=== PATIENT | female | born 1985 | race Hispanic/Latino ===

== ENCOUNTER 2019-05-05 06:58 | Outpatient (CLI) | payer OTHER ==
--- NOTE | 2019-05-05 07:50 | ULT ---
ULTRASOUND ABDOMEN: HISTORY: Epigastric pain. FINDINGS: The liver, spleen, pancreas, gallbladder, kidneys, and visualized portions of the ureter and IVC appe ar normal. The common duct measures 4 mm in diameter. No free fluid is seen. IMPRESSION: Normal exam. POS: [facility]
== END 2019-05-05 06:59 | disposition home or self-care (01) ==
LOC: BICULT 06:58
PROVIDERS: ATTEND Family Medicine
DX: R10.13 Epigastric pain (principal)
CPT/HCPCS: 93975

== ENCOUNTER 2019-07-12 13:50 | Inpatient (IN) | payer OTHER ==
[2019-07-12] MEDS ORDERED: Sodium Chloride 0.9% 1,000 ML IV SCH (14:06)
[2019-07-12 14:38] LABS: #Eosinphils 0.1 thou/uL (0.0-0.7); #Lymphocytes 1.1 thou/uL (1.20-3.40); #Monocytes 0.6 thou/uL (0.11-0.59); #Neutrophils 4.6 thou/uL (1.40-6.50); %Basophils 0.3 % (0.0-1.0); %Eosinophils 1.3 % (0.0-10.0); %Lymphocytes 16.6 % (21.0-51.0); %Neutrophils 72.8 % (42.0-75.0); Hemoglobin 10.9 g/dL (12.0-16.0); Mean Corpuscular Hemoglobin 29.3 pg (27.0-31.0); Platelet Count 13 thou/uL (130-400); RBC Distribution Width 13.6 % (11.5-14.5); Red Blood Cell (RBC) Count 3.72 mill/uL (4.20-5.40); White Blood Cell (WBC) Count 6.4 thou/uL (4.8-10.8)
[2019-07-12 14:41] LABS: ALT (SGPT) Less than 7 U/L (8-55); AST (SGOT) 11 U/L (5-34); Albumin 3.2 g/dL (3.5-5.0); Alkaline Phosphatase 151 U/L (40-110); Anion Gap 11 mmol/L (10-20); BUN (Urea Nitrogen) 25 mg/dL (7.0-18.7); Bilirubin, Total 0.2 mg/dL (0.2-1.2); Calc. Creatinine Clearance 0 mL/min (70-130); Calcium 7.4 mg/dL (7.8-10.44); Carbon Dioxide 21 mmol/L (22-29); Chloride 100 mmol/L (98-107); Estimated GFR-MDRD 50; Globulin 2.4 g/dL (2.4-3.5); Glucose 64 mg/dL (70-105); Magnesium 1.9 mg/dL (1.6-2.6); Protein, Total 5.6 g/dL (6.0-8.3); Sodium 130 mmol/L (136-145)
[2019-07-12 14:47] LABS: Potassium 2.1 mmol/L (3.5-5.1)
[2019-07-12] MEDS ORDERED: Potassium Chloride 40 MEQ in Sodium Chloride 0.9% 250 ML 250 ML IVPB SCH (15:00)
[2019-07-12] MEDS ORDERED: Dexamethasone 40 MG in Sodium Chloride 0.9% 50 ML IVPB SCH (15:15)
[2019-07-12 15:43] LABS: BHCG - Serum Negative (NEGATIVE); Pregs Control Background? CLEAR/WHITE (CLR/WHITE); Pregs Control Bar Appear? YES (CONTROL BAR)
[2019-07-12 16:02] LABS: Thyroid Stimulating Hormone 0.9895 uIU/mL (0.35-4.94)
[2019-07-12] MEDS ORDERED: Ondansetron ODT 4 MG TAB PO PRN (19:03)
[2019-07-12] MEDS ORDERED: Acetaminophen 500 MG TAB PO PRN (19:03)
[2019-07-12] MEDS ORDERED: Ondansetron PF 4 MG/2 ML Vial IVP PRN (19:03)
[2019-07-12 19:48] LABS: Reticulocyte Count 1.1 % (0.5-1.5)
[2019-07-12 20:10] LABS: CRP (Inflammatory) 0.72 mg/dL (= or < 0.5); Iron 43 ug/dL (50-170); Magnesium 1.6 mg/dL (1.6-2.6)
[2019-07-12 20:14] LABS: Phosphorus 1.7 mg/dL (2.3-4.7)
[2019-07-12 20:35] LABS: Ferritin 110.7 ng/mL (10-291)
--- NOTE | 2019-07-12 21:43 | HP ---
PRIMARY CARE PROVIDER: Michael Templeton MD CHIEF COMPLAINT: Nausea, vomiting, lightheadedness, and low potassium. HISTORY OF PRESENT ILLNESS: This is a 34-year-old female, who presents to [facility] Emergency Department in transfer from Dr. Quesada's office after patient presented for evaluation of thrombocytopenia, which was noted on routine screening after a recent emergency room visit on 07/08/2019. The patient states she had bouts of protracted nausea and vomiting as well as abdominal discomfort with associated dizziness and poor oral intake, which began approximately 4 to 5 days prior to this evaluation. The patient states she has had intermittent nausea and abdominal discomfort over the last several weeks. The patient reports a weight loss of up to 7 pounds unintentionally. The patient denied any travel history, documented fever or prominent diarrhea. No family members with similar symptoms. The patient states she presented to the emergency room after the multiple bouts of nausea and vomiting and was treated supportively with IV fluids and potassium supplementation. The patient's platelet count was noted at 29 on 07/08/2019 with recommendations for outpatient followup with Hematology Service. The patient admits to longstanding history of hypokalemia, taking supplements over the last several years. The patient states she is typically not symptomatic from hypokalemia, but became concerned when nausea and vomiting would not subside. The patient admits to a recent change to her previous vegetarian diet to more meat based in the last several months. The patient admits to increased abdominal cramping as well as burning in her abdomen and was placed on omeprazole by her primary care provider. The patient denied any other exposure history, new medications other than the omeprazole, or recent vaccinations. In the emergency room, the patient underwent repeat lab evaluation due to the low potassium and confirmed at 2.1. The patient was also noted with a platelet count of 13,000. The patient was placed on IV fluids with potassium supplementation and given 40 mg of dexamethasone at the direction of Hematology. PAST MEDICAL HISTORY: 1. Chronic hypokalemia, unclear etiology. 2. Amenorrhea, times years. 3. Gastroesophageal reflux. PAST SURGICAL HISTORY: Reviewed and negative. CURRENT MEDICATIONS: 1. Potassium chloride 20 mEq p.o. daily up to t.i.d. 2. Omeprazole. ALLERGIES: NO KNOWN DRUG ALLERGIES. FAMILY HISTORY: Multiple family members with diabetes mellitus. Father with history of lymphoma. Mother with diabetes and hypertension. Sister after complications of myocardial infarction. SOCIAL HISTORY: and resides in the [place], [place] area. No tobacco, alcohol, or illicit drug use. Works for a local admissions rn office. Functional of all activities of daily living. Previous marathon runner. REVIEW OF SYSTEMS: CONSTITUTIONAL: Negative for weight loss or gain, ability to conduct usual activities. SKIN: Negative for rash, itching. EYES: Negative for double vision, pain. ENT/MOUTH: Negative for nose bleeding, neck stiffness, pain, tenderness. CARDIOVASCULAR: Negative for palpitations, dyspnea on exertion, orthopnea. RESPIRATORY: Negative for shortness of breath, wheezing, cough, hemoptysis, fever or night sweats. GASTROINTESTINAL: Negative for poor appetite, abdominal pain, heartburn, nausea, vomiting, constipation, or diarrhea. GENITOURINARY: Negative for urgency, frequency, dysuria, nocturia. MUSCULOSKELETAL: Negative for pain, swelling. NEUROLOGIC/PSYCHIATRIC: Negative for anxiety, depression. ALLERGY/IMMUNOLOGIC: Negative for skin rash, bleeding tendency. Otherwise negative except as stated per HPI. PHYSICAL EXAMINATION: VITAL SIGNS: On admission, blood pressure 90/51, pulse 78, respiratory rate 19, temperature 97.8 degrees Fahrenheit, O2 saturation 100% on room air. GENERAL APPEARANCE: This is a 34-year-old female, alert and oriented x3, pleasant, responsive, in no acute distress. HEENT: Pupils are equal, round, reactive to light and accommodation. Extraocular muscles are intact. No scleral icterus noted. Nares are patent. OP is clear. Teeth in good repair. NECK: Supple. No cervical adenopathy. No thyromegaly. No carotid bruits. No JVD appreciated. CHEST: Lungs are clear to auscultation bilaterally. CARDIOVASCULAR: S1, S2 without noted murmur, rub, or gallop. ABDOMEN: Flat, soft, nontender, and nondistended. No palpable mass. No rebound or guarding noted. EXTREMITIES: Warm and dry with fair turgor. No clubbing, cyanosis, or asymmetric edema appreciated. Pulses palpable distally. NEUROLOGIC: Cranial nerves 2 through 12 are grossly intact. No focal or lateralizing signs appreciated. SKIN: Shows multiple areas of bruising on the upper extremities. PERTINENT LABORATORY AND X-RAY FINDINGS: Sodium 130, potassium 2.1, chloride 100, CO2 of 21, BUN 25, creatinine 1.21, estimated GFR 50, glucose 64, calcium 7.4, magnesium 1.9, total bilirubin 0.2, AST 11, ALT of less than 7, alkaline phosphatase 151, albumin 3.2. TSH 0.99. Serum beta hCG negative. CBC showed a white blood cell count of 6.4, hemoglobin 11, hematocrit 32, platelet count 13,000 with normal differential. Abdominal ultrasound dated 05/05/2019, showed negative findings. EKG dated 07/12/2019 by my interpretation shows sinus mechanism without acute arrhythmia or dysrhythmia. ASSESSMENT AND PLAN: 1. Severe hypokalemia. The patient will be admitted to the telemetry unit. We will continue potassium chloride supplementation through IV fluids and monitor serial potassium levels. Suspect exacerbation of chronic hypokalemia with recent protracted nausea and vomiting. Check magnesium and phosphorus level in the a.m. 2. Acute kidney injury. Suspect secondary to poor oral intake and hypovolemia. We will continue IV fluids as outlined previously. Avoid nephrotoxic agents and limit contrast exposure. Repeat creatinine in the a.m. 3. Hyponatremia. Suspect secondary to decreased oral intake. We will continue normal saline infusion and monitor serial sodium values. 4. Thrombocytopenia. Appears acute/subacute when reviewing the electronic medical record starting in April of 2019. Exact etiology unclear. Questionable ITP versus consumptive process. Check ESR, CRP, SON. Consider anti-platelet antibody evaluation. Consult Hematology Service for any further recommendations. Avoid iatrogenic influence. 5. Nausea and vomiting, improved. We will continue antiemetics as needed. IV fluids as outlined previously. 6. Gastroesophageal reflux. Suspected given patient's presentation and history. Continue Pepcid 20 mg IV b.i.d. Check stool for guaiac. 7. Normocytic anemia. Check serum iron, ferritin, and reticulocyte count. Check B12 and folate level in the a.m. Repeat CBC in the a.m. 8. Prophylaxis. SCDs while in bed. Pepcid 20 mg IV b.i.d. 9. Code status is full. Surrogate medical decision maker is patient's spouse. Job ID: [id number]
[2019-07-13] MEDS: NS 0.9% w/ 40 MEQ KCL 1,000 ML IV SCH ×3 (00:52→14:50)
[2019-07-13] MEDS: Famotidine/PF 20 mg/2ml Vial SLOW IVP SCH ×2 (00:57→09:08)
[2019-07-13] MEDS ORDERED: Sodium Chloride 0.9% 250 ML IV SCH (01:00)
[2019-07-13 01:09] VITALS: BMI 16.6
[2019-07-13 05:10] LABS: ALT (SGPT) 8 U/L (8-55); AST (SGOT) 12 U/L (5-34); Albumin 2.9 g/dL (3.5-5.0); Alkaline Phosphatase 137 U/L (40-110); Anion Gap 10 mmol/L (10-20); BUN (Urea Nitrogen) 15 mg/dL (7.0-18.7); Bilirubin, Total 0.3 mg/dL (0.2-1.2); Calc. Creatinine Clearance 54 mL/min (70-130); Calcium 7.1 mg/dL (7.8-10.44); Carbon Dioxide 15 mmol/L (22-29); Chloride 109 mmol/L (98-107); Estimated GFR-MDRD 81; Globulin 2.4 g/dL (2.4-3.5); Glucose 119 mg/dL (70-105); Protein, Total 5.3 g/dL (6.0-8.3); Sodium 132 mmol/L (136-145)
[2019-07-13 05:17] LABS: Potassium 2.4 mmol/L (3.5-5.1)
[2019-07-13 05:25] LABS: Hemoglobin 10.9 g/dL (12.0-16.0); Mean Corpuscular HGB CONC 34.3 g/dL (32.0-36.0); Mean Corpuscular Volume 87.3 fL (78.0-98.0); Mean Platelet Volume 15.4 fL (7.4-10.4); Platelet Count 15 thou/uL (130-400); RBC Distribution Width 13.7 % (11.5-14.5); Red Blood Cell (RBC) Count 3.64 mill/uL (4.20-5.40); White Blood Cell (WBC) Count 4.7 thou/uL (4.8-10.8)
[2019-07-13 05:37] LABS: Band 12 % (5-11); Lymphocytes 12 % (21-51); MDiff Complete? YES; Myelocyte 2 % (0-0); Neutrophil 74 % (42-75); Platelet Morphology Comment Appears Decreased
[2019-07-13] MEDS ORDERED: Folic Acid 1 MG TAB PO SCH ×2 (09:00→09:15)
[2019-07-13] MEDS ORDERED: Cyanocobalamin 1000 MCG/ML VIAL IM SCH (09:00)
[2019-07-13] MEDS: Dexamethasone 4 MG TAB PO SCH (09:06)
[2019-07-13] MEDS ORDERED: Cyanocobalamin (Vitamin B-12) 1,000 MCG TAB PO SCH (09:15)
[2019-07-13] MEDS ORDERED: Ferrous Sulfate 325 MG TAB PO SCH (09:15)
[2019-07-13] MEDS ORDERED: K-Phos Neutral 250 MG TAB PO SCH (10:00)
--- NOTE | 2019-07-13 13:15 | PDOC.HOSPP ---
- Subjective Encounter Date: 07/13/19 Encounter Time: 13:05 Subjective: f/u for hypokalemia, thrombocytopenia on IVF's with KCL replacement. States feeling cramps and numbness. No N/V/D. No fever or chills. Received Dexamethasone 40mg for 2nd day due to thrombocytopenia. - Objective Vital Signs & Weight: Vital Signs (12 hours) Temp Pulse Resp BP Pulse Ox 07/13/19 12:00 98.5 F 79 16 92/53 L 100 07/13/19 07:54 98.2 F 57 L 16 100/56 L 100 07/13/19 04:16 97.4 F L 57 L 18 85/50 L 95 Weight Admit Weight 77 lb Weight 77 lb I&O: 07/12/19 07/13/19 07/14/19 06:59 06:59 06:59 Intake Total 992 Balance 992 Result Diagrams: 07/13/19 04:09 07/13/19 04:09 Additional Labs: Laboratory Tests 07/12/19 07/12/19 07/12/19 11:16 14:12 14:23 Plt Count 13 L* ESR Westergren Retic Count Sodium 132 L 130 L Potassium 2.0 L* 2.1 L* Phosphorus Magnesium Iron Ferritin C-Reactive Protein Vitamin B12 Folate TSH 3rd Generation Cortisol 07/12/19 07/12/19 07/12/19 15:12 19:37 19:37 Plt Count ESR Westergren Retic Count Sodium Potassium Phosphorus 1.7 L Magnesium 1.6 Iron 43 L Ferritin 110.70 C-Reactive Protein 0.72 H Vitamin B12 171 L Folate TSH 3rd Generation 0.9895 Cortisol 07/12/19 07/12/19 07/12/19 19:37 19:37 19:37 Plt Count ESR Westergren 3 Retic Count 1.1 Sodium Potassium Phosphorus Magnesium Iron Ferritin C-Reactive Protein Vitamin B12 Folate 6.10 L TSH 3rd Generation Cortisol 07/13/19 04:09 Plt Count ESR Westergren Retic Count Sodium Potassium Phosphorus Magnesium Iron Ferritin C-Reactive Protein Vitamin B12 Folate TSH 3rd Generation Cortisol 2.60 EKG Reviewed by me: Yes (Tele - SR) Hospitalist ROS - Medication Medications: Active Medications Generic Name Dose Route Start Last Admin Trade Name Freq PRN Reason Stop Dose Admin Dexamethasone 40 mg 07/13/19 08:00 07/13/19 09:06 Decadron PO 40 mg QAM-WM NORBERTO Administration Potassium Chloride/Sodium Chloride 1,000 mls @ 100 mls/hr 07/12/19 19:03 06:17 Ns 0.9% W/ 40 Meq Kcl IV Not Given .Q10H NORBERTO - Exam General Appearance: NAD, awake alert Eye: PERRL, anicteric sclera ENT: normocephalic atraumatic, no oropharyngeal lesions Neck: supple, symmetric, no JVD, no thyromegaly Heart: RRR, no murmur, no gallops, no rubs, normal peripheral pulses Respiratory: CTAB, no wheezes, no rales, no ronchi, normal chest expansion Gastrointestinal: soft, non-tender, non-distended, normal bowel sounds Extremities: no cyanosis, no clubbing, no edema Skin: normal turgor Neurological: cranial nerve grossly intact, no new deficit Musculoskeletal: normal tone, normal strength Psychiatric: normal affect, A&O x 3 Hosp A/P (1) Hypokalemia Code(s): E87.6 - HYPOKALEMIA Status: Acute Plan: Slow improvement with KCL replacement, continue po KCL, hold IVF's (2) CHRIS (acute kidney injury) Code(s): N17.9 - ACUTE KIDNEY FAILURE, UNSPECIFIED Status: Acute Plan: Improved, continue to encourage free-H2O intake (3) Hyponatremia Code(s): E87.1 - HYPO-OSMOLALITY AND HYPONATREMIA Status: Acute Plan: Persistent (4) Thrombocytopenia Code(s): D69.6 - THROMBOCYTOPENIA, UNSPECIFIED Status: Acute Plan: Suspected ITP on current Dexamethasone, serial platelet monitoring (5) Hypophosphatemia Code(s): E83.39 - OTHER DISORDERS OF PHOSPHORUS METABOLISM Status: Acute Plan: Kphos 500mg TID, serial monitoring (6) Folate deficiency Code(s): E53.8 - DEFICIENCY OF OTHER SPECIFIED B GROUP VITAMINS Status: Acute Plan: Start Folate 1mg daily (7) Iron deficiency Code(s): E61.1 - IRON DEFICIENCY Status: Acute Plan: FeSO4 325mg BID - Plan Continue KCL supplementation KPhos 500mg BID Folate 1mg daily FeSO4 325mg BID Continue Dexamethasone 40mg daily Saline lock IVF's AM lab: BMP, CBC, Mg++, PO3 Consult Nephrology
[2019-07-13] MEDS: K-Phos Neutral 250 MG TAB PO SCH ×2 (13:18→16:22)
--- NOTE | 2019-07-13 13:37 | CON ---
DATE OF CONSULTATION: REASON FOR CONSULTATION: Thrombocytopenia. HISTORY OF PRESENT ILLNESS: A 34-year-old female with past medical history of chronic hypokalemia of unknown cause, presenting to the hospital with potassium 2.0 and platelets of 13. The patient saw me in clinic yesterday after referral for thrombocytopenia as her platelets decreased from 292 last summer to 61 in April and 29 a few days ago and in clinic today was found to be 15. She has never had anemia, however, today her hemoglobin had dropped from 14 to 10. She also had CHRIS with creatinine 1.8, which had improved to 1.27 and is now normal at 0.80. I evaluated her for hemolysis and this has been ruled out as has hepatitis and HIV and likely her low platelets are secondary to ITP. I started her on dexamethasone 40 mg daily x4 days, and if she does not respond or her counts drop, then we will give her a dose of IVIG. She was found to have severely low folic acid and vitamin B12 and started replacement on this. Of note, she used to be a vegetarian and started eating meat recently and has been having trouble with nausea and vomiting. 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, and denies any smoking or alcohol. She has had no diarrhea and only has occasional blood in the stool from hemorrhoids. REVIEW OF SYSTEMS: Ten-point review of systems negative except as per HPI. PAST MEDICAL HISTORY: Chronic hypokalemia. PAST SURGICAL HISTORY: None. MEDICATIONS: Current medications reviewed. ALLERGIES: NO KNOWN DRUG ALLERGIES. FAMILY HISTORY: No anemia. SOCIAL HISTORY: No tobacco or alcohol. Previous runner. PHYSICAL EXAMINATION: VITAL SIGNS: Temperature 98.5, pulse 79, respirations 16, saturating 100% on room air, blood pressure 85 to 100 over 50 to 56. GENERAL APPEARANCE: The patient is sitting up in chair, in no acute distress. HEENT: Normocephalic and atraumatic. CARDIAC: S1 and S2. Regular rhythm and rate. RESPIRATIONS: Nonlabored. ABDOMEN: Soft, nondistended, and nontender. EXTREMITIES: No edema. LABORATORY DATA: White blood cells 4.7, hemoglobin 10.9, platelets 13 up to 15 today. Reticulocytes 1.1, ESR 3. Sodium 132, potassium 2.4 up from 2.0, chloride 109, carbon dioxide 15, BUN 15, creatinine 0.80, phosphorus 1.7, magnesium 1.6, iron 43, ferritin 110, bilirubin 0.3, LDH 133, albumin 2.9, vitamin B12 of 171, folate 6.10, cortisol 2.60. Hepatitis B, C, and HIV are nonreactive. ASSESSMENT AND PLAN: A 34-year-old female with thrombocytopenia, hypokalemia, hyponatremia, and anemia. The patient's anemia is explained by a low vitamin B12 and folic acid and recommend oral folate replacement and daily B12 injections x7 followed by once per month and eventually can convert over to oral supplementation. Her thrombocytopenia is likely secondary to ITP as she has no signs or symptoms of HUS or TTP and takes no medications that should be causing this. I have started her on dexamethasone 40 mg x4 days and will trend and if no improvement or worsens, we will give her a dose of IVIG. Recommend Nephrology consult to evaluate chronic hypokalemia and hyponatremia or Endocrine consult for potential adrenal insufficiency as her cortisol was only 2.6. We will continue to follow along. Job ID: [id number] [facility]
[2019-07-13 13:42] LABS: Potassium 2.7 mmol/L (3.5-5.1)
[2019-07-13] MEDS ORDERED: Potassium Chloride 20 MEQ TAB PO SCH (14:00)
[2019-07-13 15:10] LABS: Potassium, Urine 22.9 mmol/L
[2019-07-13 15:39] LABS: ANA Symphony (Qualitative) Negative (Negative); ANA Symphony (Quantitative) 0.3 Ratio (< 0.7 Negative); dsDNA IgG Antibody Less than 0.5 IU/mL (<10 Negative)
[2019-07-13] MEDS: Potassium Chloride 20 MEQ TAB PO SCH (16:23)
[2019-07-13] MEDS: Ferrous Sulfate 325 MG TAB PO SCH (16:23)
--- NOTE | 2019-07-13 20:47 | PDOC.EVN ---
Event Note - Event Note Event Note: Notified by RN, patient with diffuse tingling and hand stiffness. Has had calcium, potassium and phosphorus deficiencies. Corrected calcium today is 7.98. Will repeat labs to reassess and will include magnesium. Per Dr. Lopez, results to be communicated to nephrology for further management.
--- NOTE | 2019-07-13 21:08 | CON ---
DATE OF CONSULTATION: CONSULTING PHYSICIAN: Paramjit Hua MD REQUESTING PHYSICIAN: Dr. Reed. REASON FOR CONSULTATION: Chronic hypokalemia. IMPRESSION: 1. Chronic hypokalemia, currently exacerbated by nausea and vomiting with poor p.o. intake. The etiology of these chronic hypokalemia is unknown at this point. Potential etiologies include but not limited to the following. a. Renal tubular acidosis, especially in this patient with metabolic acidosis in the presence of possible alkalotic urine. b. Rare genetic disorders in this case bypass syndrome which is associated with hypercalciuria with hypocalcemia, especially in this patient with hypocalcemia. The only finding that contradicts this diagnosis is metabolic acidosis as this patient is trying to be alkalotic and with low blood pressure of which this patient does have. 2. Potential etiology includes self-induced continued vomiting with its attendance potassium loss in the urine due to metabolic alkalosis and delivery of high bicarbonate load to the distal collecting tubule. 3. Diet especially in this patient is on low-calorie diet. In this case, possibly protein with low-carbohydrate generating a lot of ketones, which this patient's urine did show trace ketone and this ketones in turn will induce potassium loss due to the negatively charged ion in the distal convoluted tubule. PLAN: Extensive workup to be initiated to identify the baseline chronic hypokalemia in this patient who has currently been exacerbated by poor p.o. intake and nausea and vomiting. These workup will include. 1. 24-hour urine collection for analysis of the amount of potassium loss in the urine as well as the degree of calcium loss or spot urine for protein and chloride to be checked to find out the degree of chloride excretion in this patient, which if this patient is having mainly started just nausea and vomiting, the chloride loss in the urine would be less. Degree of calcium loss will have to differentiate between bypass syndrome and Gitelman syndrome. 2. Continue with protein repletion in this patient. 3. If renal tubular acidosis eventually diagnosed, administration of sodium and potassium p.o. in this case sodium and potassium citrate will be initiated. 4. Further management will be dependent on the clinical course. The thrombocytopenia cannot be explained at this point. HISTORY OF PRESENT ILLNESS: History is that of 34-year-old female patient who does have history of chronic hypokalemia, on potassium supplementation, which etiology has not been diagnosed presented here as a transfer from Dr. Quesada's office with unexplained thrombocytopenia and severe hypokalemia. As a result of these electrolyte abnormality, decision has been taken to involve Renal in the management of this case. On close evaluation of this patient, the patient noted to have low blood pressure, low phosphorus level, and low calcium level. A constellation of these findings will necessitate extensive workup to evaluate the baseline electrolyte dysfunction in this patient. PAST MEDICAL HISTORY: Significant for chronic hypokalemia, recent diagnosis of unexplained thrombocytopenia, reflux disease. CURRENT MEDICATIONS: Include: 1. Potassium. 2. Omeprazole. ALLERGIES: NO KNOWN DRUG ALLERGIES. FAMILY HISTORY: Not significantly related to presenting illness. SOCIAL HISTORY: No tobacco. No illicit drug use. REVIEW OF SYSTEMS: As documented in the body of the history. All the other systems were reviewed and found not to be significantly related to presenting illness. PHYSICAL EXAMINATION: GENERAL: The patient was found not to be in any obvious distress, but somewhat lethargic looking with the following vital signs. VITAL SIGNS: Afebrile, temperature 97.6, pulse 59, respiratory rate of 16, O2 saturation of 96% with blood pressure of 87/52, 73/45. HEENT: Unremarkable. CARDIOVASCULAR SYSTEM: First and second heart sounds were heard. RESPIRATORY SYSTEM: Clear to auscultation. DIGESTIVE SYSTEM: Revealed a benign abdomen. Positive bowel sounds. EXTREMITIES: No peripheral edema. SKIN: No new gross rash. LYMPHATICS: No peripheral lymphadenopathy. SUMMARY: A 34-year-old female patient with unexplained electrolyte abnormalities, especially hypokalemia. Thank you for this consultation. We will follow with you. Job ID: [id number] MTDD
[2019-07-13 21:20] LABS: Anion Gap 14 mmol/L (10-20); BUN (Urea Nitrogen) 13 mg/dL (7.0-18.7); Calc. Creatinine Clearance 50 mL/min (70-130); Calcium 6.7 mg/dL (7.8-10.44); Carbon Dioxide 16 mmol/L (22-29); Chloride 106 mmol/L (98-107); Estimated GFR-MDRD 76; Glucose 121 mg/dL (70-105); Magnesium 1.4 mg/dL (1.6-2.6); Phosphorus 2.5 mg/dL (2.3-4.7); Potassium 3.1 mmol/L (3.5-5.1); Sodium 133 mmol/L (136-145)
[2019-07-13] MEDS: Calcium Carbonate 500 MG ChewTAB PO PRN (22:26)
[2019-07-13] MEDS: Simethicone Chewable 80 MG TAB PO PRN (22:26)
[2019-07-13] MEDS ORDERED: Calcium Gluconate 9.2 MEQ in Sodium Chloride 0.9% 100 ML IVPB SCH (22:30)
[2019-07-13] MEDS ORDERED: Magnesium 2 GM/50 ML 2 GM in Premix Bag 1 BAG IVPB SCH (22:30)
[2019-07-13] MEDS: D5 NS w/ 40 mEq KCl 1,000 ML IV SCH (23:25)
[2019-07-14 04:59] LABS: Band 11 % (5-11); Hemoglobin 9.5 g/dL (12.0-16.0); Lymphocytes 5 % (21-51); MDiff Complete? YES; Mean Corpuscular Hemoglobin 30.1 pg (27.0-31.0); Mean Corpuscular Volume 86.1 fL (78.0-98.0); Mean Platelet Volume 12.9 fL (7.4-10.4); Monocytes 1 % (0-10); Neutrophil 83 % (42-75); Platelet Count 33 thou/uL (130-400); Platelet Morphology Comment Appears Decreased; RBC Distribution Width 13.8 % (11.5-14.5); Red Blood Cell (RBC) Count 3.15 mill/uL (4.20-5.40); White Blood Cell (WBC) Count 10.6 thou/uL (4.8-10.8)
[2019-07-14 05:03] LABS: Albumin 2.7 g/dL (3.5-5.0); Anion Gap 9 mmol/L (10-20); BUN (Urea Nitrogen) 14 mg/dL (7.0-18.7); Calc. Creatinine Clearance 54 mL/min (70-130); Calcium 7.3 mg/dL (7.8-10.44); Carbon Dioxide 16 mmol/L (22-29); Chloride 110 mmol/L (98-107); Estimated GFR-MDRD 81; Glucose 120 mg/dL (70-105); Magnesium 2.1 mg/dL (1.6-2.6); Phosphorus 2.2 mg/dL (2.3-4.7); Sodium 132 mmol/L (136-145)
[2019-07-14 05:11] LABS: Potassium 2.6 mmol/L (3.5-5.1)
[2019-07-14] MEDS: Dexamethasone 4 MG TAB PO SCH (09:19)
[2019-07-14] MEDS: Potassium Chloride 20 MEQ TAB PO SCH ×2 (09:20→16:31)
[2019-07-14] MEDS: K-Phos Neutral 250 MG TAB PO SCH ×3 (09:20→16:30)
[2019-07-14] MEDS: Ferrous Sulfate 325 MG TAB PO SCH ×2 (09:20→16:30)
[2019-07-14] MEDS: Folic Acid 1 MG TAB PO SCH (09:21)
[2019-07-14] MEDS: Famotidine/PF 20 mg/2ml Vial SLOW IVP SCH (09:21)
[2019-07-14] MEDS: Cyanocobalamin (Vitamin B-12) 1,000 MCG TAB PO SCH (09:21)
[2019-07-14] MEDS: Calcium Carbonate 500 MG ChewTAB PO PRN ×2 (09:26→16:32)
[2019-07-14] MEDS ORDERED: Cyanocobalamin 1000 MCG/ML VIAL IM SCH (10:45)
--- NOTE | 2019-07-14 12:22 | PDOC.MOPN ---
Interval History: Pt feeling better today, energy improved. No bleeding. Plts 15 > 33. - Vital Signs Vital Signs: Vital Signs (12 hours) Temp Pulse Resp BP BP Pulse Ox 07/14/19 11:26 97.4 F L 71 22 H 86/50 L 100 07/14/19 07:51 97.6 F 65 16 89/54 L 95 07/14/19 04:00 97.7 F 71 16 84/50 L 99 Weight Admit Weight 77 lb Weight 77 lb - Physical Exam General: Alert, Oriented x3, Cooperative HEENT: EOMI Lungs: Normal air movement Cardiovascular: Regular rate Neurological: Cranial nerves 3-12 NL Psych/Mental Status: Mood NL - Labs Result Diagrams: 07/14/19 04:13 07/14/19 04:13 Lab results: Laboratory Results - last 24 hr 07/14/19 04:13: Sodium 132 L, Potassium 2.6 L*, Chloride 110 H, Carbon Dioxide 16 L, Anion Gap 9 L, BUN 14, Creatinine 0.80, Estimated GFR (MDRD) 81, BUN/ Creatinine Ratio 17.50, Glucose 120 H, Calcium 7.3 L, Phosphorus 2.2 L, Magnesium 2.1, Albumin 2.7 L 07/14/19 04:13: WBC 10.6, RBC 3.15 L, Hgb 9.5 L, Hct 27.1 L, MCV 86.1, MCH 30.1 , MCHC 35.0, RDW 13.8, Plt Count 33 L, MPV 12.9 H, Neutrophils % (Manual) 83 H, Band Neuts % (Manual) 11, Lymphocytes % (Manual) 5 L, Monocytes % (Manual) 1, Plt Morphology Comment Appears Decreased L 07/13/19 20:44: Sodium 133 L, Potassium 3.1 L, Chloride 106, Carbon Dioxide 16 L , Anion Gap 14, BUN 13, Creatinine 0.85, Estimated GFR (MDRD) 76, Glucose 121 H , Calcium 6.7 L, Phosphorus 2.5, Magnesium 1.4 L 07/13/19 14:30: U Random Total Protein 24 H, Urine Potassium 22.9 07/13/19 13:14: Potassium 2.7 L* 07/12/19 19:37: SON Screen Negative, SON Scrn Qualitative Negative, SON Scrn Quantitative 0.3, SON & Anti-RICHARD New Method NEW METHOD , Anti-ds DNA IgG Ab Less than 0.5, Anti-ds DNA Interp A/P - Problem (1) Acute ITP Current Visit: Yes Code(s): D69.3 - IMMUNE THROMBOCYTOPENIC PURPURA Status: Acute (2) B12 deficiency Current Visit: Yes Code(s): E53.8 - DEFICIENCY OF OTHER SPECIFIED B GROUP VITAMINS Status: Acute (3) Folate deficiency Current Visit: Yes Code(s): E53.8 - DEFICIENCY OF OTHER SPECIFIED B GROUP VITAMINS Status: Acute - Plan Plan: ITP: plts improved on Dex cont Dex 40 mg x 4 days total Anemai: 2/2 B12 and folate deficiency cont replacement Electrolyte disturbances f/u nephro recs for diagnosis, unknown at this time
[2019-07-14] MEDS: D5 NS w/ 40 mEq KCl 1,000 ML IV SCH (12:42)
--- NOTE | 2019-07-14 14:41 | PDOC.HOSPP ---
- Subjective Encounter Date: 07/14/19 Encounter Time: 14:00 Subjective: f/u for multiple electrolyte abnormalities, thrombocytopenia and dehydration. Feels ok overall, had cramping last pm. Eating better. - Objective Vital Signs & Weight: Vital Signs (12 hours) Temp Pulse Resp BP BP Pulse Ox 07/14/19 11:26 97.4 F L 71 22 H 86/50 L 100 07/14/19 07:51 97.6 F 65 16 89/54 L 95 07/14/19 04:00 97.7 F 71 16 84/50 L 99 Weight Admit Weight 77 lb Weight 77 lb I&O: 07/13/19 07/14/19 07/15/19 06:59 06:59 06:59 Intake Total 992 4542 Balance 992 4542 Result Diagrams: 07/14/19 04:13 07/14/19 04:13 Additional Labs: Laboratory Tests 07/12/19 07/12/19 07/12/19 11:16 14:12 14:23 Plt Count 13 L* ESR Westergren Retic Count Sodium 132 L 130 L Potassium 2.0 L* 2.1 L* Carbon Dioxide Calcium Phosphorus Magnesium Iron Ferritin C-Reactive Protein Albumin Vitamin B12 Folate TSH 3rd Generation Cortisol 07/12/19 07/12/19 07/12/19 15:12 19:37 19:37 Plt Count ESR Westergren Retic Count Sodium Potassium Carbon Dioxide Calcium Phosphorus 1.7 L Magnesium 1.6 Iron 43 L Ferritin 110.70 C-Reactive Protein 0.72 H Albumin Vitamin B12 171 L Folate TSH 3rd Generation 0.9895 Cortisol 07/12/19 07/12/19 07/12/19 19:37 19:37 19:37 Plt Count ESR Westergren 3 Retic Count 1.1 Sodium Potassium Carbon Dioxide Calcium Phosphorus Magnesium Iron Ferritin C-Reactive Protein Albumin Vitamin B12 Folate 6.10 L TSH 3rd Generation Cortisol 07/13/19 07/13/19 07/13/19 04:09 04:09 04:09 Plt Count 15 L* ESR Westergren Retic Count Sodium Potassium Carbon Dioxide 15 L Calcium 7.1 L Phosphorus Magnesium Iron Ferritin C-Reactive Protein Albumin Vitamin B12 Folate TSH 3rd Generation Cortisol 2.60 07/13/19 07/13/19 07/14/19 13:14 20:44 04:13 Plt Count ESR Westergren Retic Count Sodium 133 L Potassium 2.7 L* 3.1 L Carbon Dioxide 16 L Calcium 6.7 L Phosphorus 2.5 2.2 L Magnesium 1.4 L 2.1 Iron Ferritin C-Reactive Protein Albumin 2.7 L Vitamin B12 Folate TSH 3rd Generation Cortisol EKG Reviewed by me: Yes (Tele - SR) Hospitalist ROS - Medication Medications: Active Medications Generic Name Dose Route Start Last Admin Trade Name Freq PRN Reason Stop Dose Admin Calcium Carbonate 1,000 mg 07/12/19 19:03 07/14/19 09:26 Tums PO 1,000 mg Q4H PRN Administration Heartburn or Indigestion Cyanocobalamin 1,000 mcg 07/14/19 09:00 07/14/19 09:21 Vitamin B-12 PO 1,000 mcg DAILY NORBERTO Administration Dexamethasone 40 mg 07/13/19 08:00 07/14/19 09:19 Decadron PO 40 mg QAM-WM NORBERTO Administration Famotidine 20 mg 07/14/19 09:00 07/14/19 09:21 Pepcid SLOW IVP 20 mg DAILY NORBERTO Administration Ferrous Sulfate 325 mg 07/13/19 17:00 07/14/19 09:20 Feosol PO 325 mg BID-WM NORBERTO Administration Folic Acid 1 mg 07/14/19 09:00 07/14/19 09:21 Folvite PO 1 mg DAILY NORBERTO Administration Phosphorus 500 mg 07/13/19 12:00 07/14/19 12:05 Kphos Neutral PO 500 mg TID-WM NORBERTO Administration Potassium Chloride 40 meq 07/13/19 17:00 07/14/19 09:20 K-Dur PO 40 meq BID-WM NORBERTO Administration Simethicone 80 mg 07/13/19 21:38 07/13/19 22:26 Mylicon Chewable PO 80 mg PCHS PRN Administration Gas Pain - Exam General Appearance: NAD, awake alert General - other findings: smiling, alert Eye: PERRL, anicteric sclera ENT: normocephalic atraumatic, no oropharyngeal lesions Neck: supple, symmetric, no JVD, no thyromegaly Heart: RRR, no murmur, no gallops, no rubs, normal peripheral pulses Heart - other findings: S1, S2 Respiratory: CTAB, no wheezes, no rales, no ronchi, normal chest expansion, no tachypnea Gastrointestinal: soft, non-tender, non-distended, normal bowel sounds, no palpable masses Extremities: no cyanosis Extremities - other findings: mild edema of ankles Skin: normal turgor Skin - other findings: multiple bruises on forearms Neurological: cranial nerve grossly intact, no new deficit Musculoskeletal: normal tone, normal strength Psychiatric: normal affect, A&O x 3 Hosp A/P (1) Hypokalemia Code(s): E87.6 - HYPOKALEMIA Status: Acute Plan: Slow improvement with KCL replacement, ? K+ wasting syndrome, serial K+ monitoring (2) CHRIS (acute kidney injury) Code(s): N17.9 - ACUTE KIDNEY FAILURE, UNSPECIFIED Status: Acute Plan: Improved, avoid nephrotoxic meds and limit contrast, 24h urine pending (3) Hyponatremia Code(s): E87.1 - HYPO-OSMOLALITY AND HYPONATREMIA Status: Acute Plan: Likely due to decreased po intake and nutritional status, serial monitoring (4) Thrombocytopenia Code(s): D69.6 - THROMBOCYTOPENIA, UNSPECIFIED Status: Acute Plan: Improved, continue Dexamethasone 40mg daily, serial platelet monitoring (5) Hypophosphatemia Code(s): E83.39 - OTHER DISORDERS OF PHOSPHORUS METABOLISM Status: Acute Plan: Slow improvement, continue KPhos (6) Folate deficiency Code(s): E53.8 - DEFICIENCY OF OTHER SPECIFIED B GROUP VITAMINS Status: Acute Plan: Continue Folate replacement (7) Iron deficiency Code(s): E61.1 - IRON DEFICIENCY Status: Acute Plan: Continue FeSO4 replacement - Plan plan discussed w/ family, out of bed/ambulate Continue KCL supplementation KPhos 500mg BID Folate 1mg daily FeSO4 325mg BID Continue Dexamethasone 40mg daily Saline lock IVF's Check Vit D level, PTH AM lab: BMP, CBC, Mg++, PO3 Nephrology/Hematology consults appreciated
[2019-07-14 15:24] LABS: Urine Total Volume 2275 mL (600-1600)
[2019-07-14 15:49] LABS: Potassium, Urine 21.9 mmol/L
[2019-07-14 15:55] LABS: Protein, Urine Less than 10 mg/dL (1-14)
[2019-07-14 16:49] LABS: Bilirubin Negative (Negative); Blood, Urine Negative (Negative); Clarity Clear (Clear); Glucose, Urine (Dipstick) Normal (Negative); Leukocyte Negative Leu/uL (Negative); Nitrite Negative (Negative); Protein, Urine (Dipstick) Negative (Neg-Trace); Urobilinogen Normal mg/dL (Less than 2)
[2019-07-15] MEDS: Calcium Carbonate 500 MG ChewTAB PO PRN ×4 (00:29→16:49)
[2019-07-15 05:02] LABS: Albumin 2.8 g/dL (3.5-5.0); Anion Gap 10 mmol/L (10-20); BUN (Urea Nitrogen) 17 mg/dL (7.0-18.7); BUN/Creatinine Ratio 21.79; Calc. Creatinine Clearance 55 mL/min (70-130); Calcium 6.7 mg/dL (7.8-10.44); Carbon Dioxide 19 mmol/L (22-29); Chloride 107 mmol/L (98-107); Estimated GFR-MDRD 84; Glucose 120 mg/dL (70-105); Magnesium 1.5 mg/dL (1.6-2.6); Sodium 133 mmol/L (136-145)
[2019-07-15 05:05] LABS: Phosphorus 1.8 mg/dL (2.3-4.7)
[2019-07-15 05:09] LABS: Phosphorus 1.8 mg/dL (2.3-4.7); Potassium 2.8 mmol/L (3.5-5.1)
[2019-07-15 05:11] LABS: Hemoglobin 9.3 g/dL (12.0-16.0); Mean Corpuscular HGB CONC 34.6 g/dL (32.0-36.0); Mean Corpuscular Hemoglobin 30.2 pg (27.0-31.0); Mean Corpuscular Volume 87.3 fL (78.0-98.0); Mean Platelet Volume 10.8 fL (7.4-10.4); Platelet Count 63 thou/uL (130-400); RBC Distribution Width 13.9 % (11.5-14.5); Red Blood Cell (RBC) Count 3.07 mill/uL (4.20-5.40); White Blood Cell (WBC) Count 8.7 thou/uL (4.8-10.8)
[2019-07-15 05:30] LABS: Band 3 % (5-11); Lymphocytes 6 % (21-51); MDiff Complete? YES; Metamyelocyte 1 % (0-0); Monocytes 1 % (0-10); Neutrophil 89 % (42-75); Platelet Morphology Comment Appears Decreased; RBC Morphology Normal
[2019-07-15] MEDS ORDERED: Potassium Phosphate 15 MMOL in Sodium Chloride 0.9% 250 ML 250 ML IVPB SCH (06:45)
[2019-07-15] MEDS: K-Phos Neutral 250 MG TAB PO SCH ×3 (08:44→16:41)
[2019-07-15] MEDS: Cyanocobalamin (Vitamin B-12) 1,000 MCG TAB PO SCH (08:44)
[2019-07-15] MEDS: Famotidine/PF 20 mg/2ml Vial SLOW IVP SCH (08:44)
[2019-07-15] MEDS: Dexamethasone 4 MG TAB PO SCH (08:45)
[2019-07-15] MEDS: Folic Acid 1 MG TAB PO SCH (08:45)
[2019-07-15] MEDS: Ferrous Sulfate 325 MG TAB PO SCH ×2 (08:46→16:41)
[2019-07-15] MEDS: Potassium Bicarbonate/Cit Ac 25 MEQ TAB PO SCH ×2 (10:13→16:41)
[2019-07-15] MEDS: Simethicone Chewable 80 MG TAB PO PRN (12:37)
[2019-07-15 13:28] LABS: ALT (SGPT) 19 U/L (8-55); AST (SGOT) 19 U/L (5-34); Albumin 3.1 g/dL (3.5-5.0); Alkaline Phosphatase 114 U/L (40-110); Anion Gap 13 mmol/L (10-20); BUN (Urea Nitrogen) 16 mg/dL (7.0-18.7); BUN/Creatinine Ratio 21.92; Bilirubin, Total Less than 0.2 mg/dL (0.2-1.2); Calc. Creatinine Clearance 59 mL/min (70-130); Calcium 6.5 mg/dL (7.8-10.44); Carbon Dioxide 19 mmol/L (22-29); Chloride 106 mmol/L (98-107); Estimated GFR-MDRD 90; Globulin 2.1 g/dL (2.4-3.5); Glucose 99 mg/dL (70-105); Potassium 3.3 mmol/L (3.5-5.1); Protein, Total 5.2 g/dL (6.0-8.3); Sodium 135 mmol/L (136-145)
--- NOTE | 2019-07-15 13:34 | PDOC.HOSPP ---
- Subjective Encounter Date: 07/15/19 Encounter Time: 09:45 Subjective: wants to go home, K and Phos being replaced. cramps - Objective Vital Signs & Weight: Vital Signs (12 hours) Temp Pulse Resp BP Pulse Ox 07/15/19 12:28 98.2 F 71 23 H 100/49 L 100 07/15/19 08:36 97.5 F L 83 21 H 86/54 L 100 07/15/19 04:00 98.7 F 63 15 85/49 L 94 L Weight Admit Weight 77 lb Weight 77 lb I&O: 07/14/19 07/15/19 07/16/19 06:59 06:59 06:59 Intake Total 4542 2260 Balance 4542 2260 Result Diagrams: 07/15/19 04:29 07/15/19 12:53 Hospitalist ROS - Medication Medications: Active Medications Generic Name Dose Route Start Last Admin Trade Name Freq PRN Reason Stop Dose Admin Calcium Carbonate 1,000 mg 07/12/19 19:03 07/15/19 10:39 Tums PO 1,000 mg Q4H PRN Administration Heartburn or Indigestion Cyanocobalamin 1,000 mcg 07/14/19 09:00 07/15/19 08:44 Vitamin B-12 PO 1,000 mcg DAILY NORBERTO Administration Dexamethasone 40 mg 07/13/19 08:00 07/15/19 08:45 Decadron PO 40 mg QAM-WM NORBERTO Administration Famotidine 20 mg 07/14/19 09:00 07/15/19 08:44 Pepcid SLOW IVP 20 mg DAILY NORBERTO Administration Ferrous Sulfate 325 mg 07/13/19 17:00 07/15/19 08:46 Feosol PO 325 mg BID-WM NORBERTO Administration Folic Acid 1 mg 07/14/19 09:00 07/15/19 08:45 Folvite PO 1 mg DAILY NORBERTO Administration Phosphorus 500 mg 07/13/19 12:00 07/15/19 12:26 Kphos Neutral PO 500 mg TID-WM NORBERTO Administration Potassium Bicarbonate/Citric Acid 25 meq 07/15/19 08:00 07/15/19 10:13 K-Vescent PO 25 meq BID-WM NORBERTO Administration Simethicone 80 mg 07/13/19 21:38 07/15/19 12:37 Mylicon Chewable PO 80 mg PCHS PRN Administration Gas Pain - Exam General Appearance: NAD, awake alert Eye: PERRL, anicteric sclera ENT: normocephalic atraumatic Neck: supple, no thyromegaly Heart: RRR Respiratory: CTAB Gastrointestinal: normal bowel sounds Extremities: no cyanosis Hosp A/P - Plan ITP Hypokalemia Hypophosphatemia --lytes being replaceed --renal and haem on board pt wants to leave child at home as soon as lytes normalized, plan for dc, which is not today.
[2019-07-15 13:39] LABS: Phosphorus 1.5 mg/dL (2.3-4.7)
[2019-07-15] MEDS ORDERED: Potassium Chloride 20 MEQ TAB PO SCH (14:15)
[2019-07-15] MEDS ORDERED: Calcium Gluconate 9.2 MEQ in Sodium Chloride 0.9% 100 ML IVPB SCH (14:30)
[2019-07-15] MEDS ORDERED: Methocarbamol 500 MG TAB PO PRN (14:47)
--- NOTE | 2019-07-15 15:10 | PDOC.MOPN ---
Interval History: Platelets improved to 63. Pt c/o severe muscle cramps from low electrolytes causing 10/10 pain, screaming in agony. - Vital Signs Vital Signs: Vital Signs (12 hours) Temp Pulse Resp BP Pulse Ox 07/15/19 12:28 98.2 F 71 23 H 100/49 L 100 07/15/19 08:36 97.5 F L 83 21 H 86/54 L 100 07/15/19 04:00 98.7 F 63 15 85/49 L 94 L Weight Admit Weight 77 lb Weight 77 lb - Physical Exam General: Alert, Oriented x3, Severe distress Lungs: Normal air movement Cardiovascular: Regular rate Abdomen: Soft Skin: No significant lesion (mild bruising) - Labs Result Diagrams: 07/15/19 04:29 07/15/19 12:53 Lab results: Laboratory Results - last 24 hr 07/15/19 12:53: Sodium 135 L, Potassium 3.3 L, Chloride 106, Carbon Dioxide 19 L , Anion Gap 13, BUN 16, Creatinine 0.73, Estimated GFR (MDRD) 90, BUN/ Creatinine Ratio 21.92, Glucose 99, Calcium 6.5 L, Phosphorus 1.5 L, Total Bilirubin Less than 0.2 L, AST 19, ALT 19, Alkaline Phosphatase 114 H, Serum Total Protein 5.2 L, Albumin 3.1 L, Globulin 2.1 L, Albumin/Globulin Ratio 1.5 07/15/19 04:29: WBC 8.7, RBC 3.07 L, Hgb 9.3 L, Hct 26.8 L, MCV 87.3, MCH 30.2, MCHC 34.6, RDW 13.9, Plt Count 63 L, MPV 10.8 H, Neutrophils % (Manual) 89 H, Band Neuts % (Manual) 3 L, Lymphocytes % (Manual) 6 L, Monocytes % (Manual) 1, Metamyelocytes % (Man) 1 H, Plt Morphology Comment Appears Decreased L, RBC Morph Comment Normal 07/15/19 04:29: Phosphorus 1.8 L 07/15/19 04:29: Sodium 133 L, Potassium 2.8 L*, Chloride 107, Carbon Dioxide 19 L, Anion Gap 10, BUN 17, Creatinine 0.78, Estimated GFR (MDRD) 84, BUN/ Creatinine Ratio 21.79, Glucose 120 H, Calcium 6.7 L, Phosphorus 1.8 L, Magnesium 1.5 L, Albumin 2.8 L 07/14/19 : Urine Color Colorless, Urine Clarity Clear, Urine pH 6.5, Ur Specific Ovid 1.008, Urine Protein Negative, Urine Glucose (UA) Normal, Urine Ketones Negative, Urine Blood Negative, Urine Nitrite Negative, Urine Bilirubin Negative, Urine Urobilinogen Normal, Ur Leukocyte Esterase Negative 07/14/19 16:29: Urine Creatinine Less than 20.00 L 07/14/19 14:42: PTH Intact 311.8 H 07/13/19 14:30: Urine Protein Less than 10, Ur Collection Duration 24, Urine Total Volume 2275 H, U Tot Protein 24h, Calc TNP 07/13/19 14:30: Ur Collection Duration 24, Urine Total Volume 2275 H, Urine Potassium 21.9, Ur Potassium 24 Hour 50 07/13/19 14:30: Ur Collection Duration 24, Urine Total Volume 2275 H, Ur Calcium 24 Hr 93 L A/P - Problem (1) Acute ITP Current Visit: Yes Code(s): D69.3 - IMMUNE THROMBOCYTOPENIC PURPURA Status: Acute (2) B12 deficiency Current Visit: Yes Code(s): E53.8 - DEFICIENCY OF OTHER SPECIFIED B GROUP VITAMINS Status: Acute (3) Folate deficiency Current Visit: Yes Code(s): E53.8 - DEFICIENCY OF OTHER SPECIFIED B GROUP VITAMINS Status: Acute - Plan Plan: Complete 4 days of Dexamethasone, platelets improved to 63, continue to monitor cont B12 and folic acid replacement cont IV electrolyte replacement and w/u as per nephro, receiving IV calcium and potassium now for severe cramps DC home once electrolytes safely stable f/u with me in clinic after discharge for ongoing care for ITP
[2019-07-15] MEDS: Dronabinol 2.5 MG CAP PO SCH (16:42)
[2019-07-15] MEDS ORDERED: Calcium Carbonate + Vit D 1 TAB PO SCH ×2 (17:00→21:41)
[2019-07-15] MEDS ORDERED: Ergocalciferol 1.25 MG(50,000 UNITS) CAP PO SCH (17:00)
[2019-07-15 17:04] LABS: Albumin 3.2 g/dL (3.5-5.0); Anion Gap 15 mmol/L (10-20); BUN (Urea Nitrogen) 15 mg/dL (7.0-18.7); BUN/Creatinine Ratio 19.23; Calc. Creatinine Clearance 55 mL/min (70-130); Calcium 7.2 mg/dL (7.8-10.44); Carbon Dioxide 16 mmol/L (22-29); Chloride 106 mmol/L (98-107); Estimated GFR-MDRD 84; Glucose 167 mg/dL (70-105); Sodium 134 mmol/L (136-145)
[2019-07-15 17:11] LABS: Phosphorus 1.6 mg/dL (2.3-4.7); Potassium 2.8 mmol/L (3.5-5.1)
[2019-07-15] MEDS ORDERED: Calcium Gluconate 4.6 MEQ in Sodium Chloride 0.9% 100 ML IVPB SCH (18:00)
--- NOTE | 2019-07-15 18:27 | PRG ---
DATE OF SERVICE: 07/15/2019 SUBJECTIVE: The patient is seen and examined, noted with clenched fist which she claimed had to do with hypocalcemia, it is somewhat unusual. Noted with the following vital signs. OBJECTIVE: VITAL SIGNS: Afebrile, temperature 98.2, pulse 71, respiratory rate of 23, O2 saturation 100% with blood pressure 100/49. HEENT: Unremarkable. CARDIOVASCULAR: First and second heart sounds were heard. RESPIRATORY: Clear to auscultation. DIGESTIVE: Benign abdomen. EXTREMITIES: No peripheral edema. SKIN: No new gross rash. LYMPHATICS: No peripheral lymphadenopathy. LABORATORY INVESTIGATION: Earlier today showed a potassium of 2.8, it has been now at 3.3; calcium of 6.7; and phosphorus of 1.5. intact PTH of 311. IMPRESSION: 1. Severe electrolyte abnormalities mainly compounded by poor nutritional intake. 2. Possible renal tubular acidosis, given the high pH in this patient in the face of metabolic acidosis and hypokalemia. This is probably the baseline condition of this patient, but it has now been exacerbated by poor nutritional intake. PLAN: 1. The patient to be placed on appetite stimulant today. 2. While waiting for vitamin D level, I will start this patient on 50,000 units of vitamin D with calcium supplementation. 3. The patient counseled on the need to step up on her diet, which is likely exacerbating all her baseline clinical condition. 4. From now onwards, the patient to be on potassium citrate as this will address the metabolic acidosis and hypokalemia. 5. Further management will be dependent on the clinical course. Job ID: [id number] [email or web address]
[2019-07-16 05:10] LABS: Anion Gap 10 mmol/L (10-20); BUN (Urea Nitrogen) 16 mg/dL (7.0-18.7); BUN/Creatinine Ratio 22.54; Calc. Creatinine Clearance 60 mL/min (70-130); Carbon Dioxide 22 mmol/L (22-29); Chloride 108 mmol/L (98-107); Estimated GFR-MDRD Greater than 90; Glucose 97 mg/dL (70-105); Magnesium 1.6 mg/dL (1.6-2.6); Potassium 3.2 mmol/L (3.5-5.1); Sodium 137 mmol/L (136-145)
[2019-07-16] MEDS: Dexamethasone 4 MG TAB PO SCH (08:39)
[2019-07-16] MEDS: K-Phos Neutral 250 MG TAB PO SCH ×3 (08:40→16:10)
[2019-07-16] MEDS: Potassium Bicarbonate/Cit Ac 25 MEQ TAB PO SCH ×2 (08:40→16:10)
[2019-07-16] MEDS: Ferrous Sulfate 325 MG TAB PO SCH ×2 (08:40→16:10)
[2019-07-16] MEDS: Folic Acid 1 MG TAB PO SCH (08:41)
[2019-07-16] MEDS: Cyanocobalamin (Vitamin B-12) 1,000 MCG TAB PO SCH (08:41)
[2019-07-16] MEDS: Famotidine/PF 20 mg/2ml Vial SLOW IVP SCH (08:41)
[2019-07-16] MEDS: Calcium Carbonate 500 MG ChewTAB PO PRN ×2 (08:46→16:09)
[2019-07-16] MEDS: Dronabinol 2.5 MG CAP PO SCH ×2 (09:18→16:21)
[2019-07-16] MEDS ORDERED: Calcium Gluconate 4.6 MEQ in Sodium Chloride 0.9% 100 ML IVPB SCH (12:45)
[2019-07-16 15:55] VITALS: BP 106/55; TEMP 98.3
[2019-07-16] MEDS ORDERED: Calcium Carbonate + Vit D 1 TAB PO SCH (17:00)
[2019-07-16] MEDS ORDERED: Famotidine/PF 20 mg/2ml Vial SLOW IVP SCH (21:00)
--- NOTE | 2019-07-17 08:31 | PRG ---
DATE OF SERVICE: 07/14/2019 SUBJECTIVE: The patient was seen and examined, very eager to go home. Noted with the following vital signs. OBJECTIVE: VITAL SIGNS: Afebrile, temperature 97.8, pulse 61, respiratory rate of 16, and O2 saturation 100% with a blood pressure 84/50. HEENT: Unremarkable. CARDIOVASCULAR SYSTEM: First and second heart sounds were heard. RESPIRATORY SYSTEM: Clear to auscultation. DIGESTIVE SYSTEM: Revealed a benign abdomen. Positive bowel sounds. EXTREMITIES: No peripheral edema. SKIN: No new gross rash. LYMPHATICS: No peripheral lymphadenopathy. LABORATORY INVESTIGATION: Showed a 24-hour urine which has loss of about 93 and urine potassium of 16, and urine pH of 6.5. Chemistry showed calcium of 7.3, increased from 6.7 yesterday. Surprisingly, PTH was greater than 11.8. Potassium 2.6, sodium of 132, bicarb was 16, creatinine 0.8. CBC showed a hemoglobin of 9.5, platelets increased to 33. IMPRESSION: 1. Severe hypokalemia, query cause. 2. Hypocalcemia with low albumin. 3. Metabolic acidosis. 4. Hyperparathyroidism, possibly primary hyperparathyroidism, query cause. PLAN: 1. . 2. Given the fact that this patient has metabolic acidosis based on the urine pH of 6.5, this raises the high possibility that this patient has renal tubular acidosis, possibly type 2 tubular acidosis. However, the electrolyte derangement has been exacerbated by possibly poor diet. 3. Cannot completely rule out neoplastic but we will wait for the results of the vitamin D level. 4. We will wait for the results of the vitamin D to further evaluate the hypocalcemia in this patient. Continue to replete the potassium and continue to replete the calcium. If the final diagnosis becomes renal tubular acidosis, we will likely place this patient on potassium citrate. 5. Further management will be dependent on the clinical course. Job ID: [id number]
--- NOTE | 2019-07-17 14:01 | DIS ---
DATE OF ADMISSION: 07/12/2019 DATE OF DISCHARGE: 07/16/2019 DISCHARGE DIAGNOSES: 1. Idiopathic thrombocytopenic purpura. 2. Hypokalemia. 3. Hypophosphatemia. 4. Electrolyte abnormality due to poor nutritional intake. 5. Renal tubular acidosis. 6. Metabolic acidosis with hypokalemia and possibly baseline with underlying etiology of poor nutritional intake. Vitamin D deficiency. 7. Acute idiopathic thrombocytopenic purpura. 8. B12 deficiency. 9. Folate deficiency. DISCHARGE MEDICATIONS: 1. Caltrate two tablets twice a day. 2. Vitamin D2 of 50,000 units once a week. 3. Robaxin 750 mg three times a day p.r.n. for only five days. 4. Potassium citrate 50 mEq twice a day. 5. She will resume the home regimen of omeprazole daily as well as ferrous sulfate 325 mg twice a day. 6. Marinol 2.5 mg twice a day. HOSPITAL COURSE: This is a 34-year-old female admitted with nausea, vomiting, lightheadedness, as well as low potassium level. Both Renal as well as Hematology followed with us. She had acute kidney injury due to dehydration as well as hyponatremia. This has been corrected over time. Her kidney injury improved. She had a low calcium with level of 6.7, improved to 7.0 with albumin level of 3.0. She will be on calcium supplement. She presented with a potassium level of 2.8 and after aggressive supplementation, it improved only up to 3.2, and she is on a daily potassium supplement as well. Her PTH was high at 311.8. She also had magnesium low and on the day of discharge, it was 1.6. Phosphorus was improved. After renal clearance, the patient is discharged today. Her TSH is 0.9895. The patient needs close followup with the Renal Clinic to continue monitoring her electrolyte abnormalities. The patient is encouraged to have adequate nutrition. Regarding her idiopathic thrombocytopenic purpura, she improved with dexamethasone. It was done for four days. She will be following with Dr. Bright Quesada in the very near future. She is hemodynamically stable. Her electrolytes are close to the lower normal range. She is given prescriptions for supplements by renal doctor as well as by me. Also, given a work excuse script. With these above management, she is stable to be discharged home. DISCHARGE INSTRUCTIONS: 1. Activity as tolerated. Please follow through with regular diet adequately. 2. Follow up with Dr. Yusuf, convertible sofa bedspring tester in one week time for lab workup as well as medication adjustment. Follow up with stamping die maker, Dr. Bright Quesada within two weeks. 3. Please adhere to your medications provided. Discharge time took over 30 minutes. Job ID: [id number] MTDD
--- NOTE | 2019-07-18 00:28 | PQF ---
[employer] Social Staff Worker [employer] Reports Winform Viewer TEODORO VEE MARGY KEARNS [id number] CLINICAL DOCUMENTATION CLARIFICATION FORM: POST DISCHARGE Addendum to original discharge summary date: ____ Late entry note date: __ Date: 07/18/19 ATTN: Margy Kearns Please exercise your independent, professional judgment in responding to the clarification form. Clinical indicators are provided on the bottom of this form for your review Can you please further clarify the diagnosis of the patient based on the clinical indicators below? Please check appropriate box(s): [ x ] Protein Calorie Malnutrition: [ ] Mild [ x] Moderate [ ] Severe [ ] Other Malnutrition (please specify) __ [ ] Underweight without malnutrition [ ] Cachexia [ ] Other diagnosis [ ] Unable to determine In addition, please specify: Present on Admission (POA): [x ] Yes [ ] No [ ] Unable to determine CLINICAL INDICATORS - SIGNS / SYMPTOMS / LABS BMI 19.1 Nutritional assessment-severe malnutrition in the context of acute illness Nutritional assessment- patient report of limited PO intake likely meeting <25 % of estimated needs for >7 days Nutritional assessment- 9.4% weight loss in the last 3 months H and P pg.1- Nausea vomiting, lightheadedness and low potassium DS pg.1- electrolyte abnormality due to poor nutritional intake RISK FACTORS Severe hypokalemia- H and P pg.3 CHRIS- H and P pg.3 Idiopathic thrombocytopenic purpura Vitamin D deficiency- DS pg.1 Dehydration- DS pg.1 TREATMENT: Dietary consult-Nutritional assessment 07/13 Oncology Consult- Dr. Quesada I and O monitoring Calcium Gluconate 4.6 meq IV MAR Caltrate 600ng PO- MAR Vitamin b 12 100mcg po- MAR Ferrous sulfate 325mg PO- MAR Folic acid PO- MAR Moderate Malnutrition (in acute illness) Energy Intake: <75% of estimated energy requirement for > 7 days Weight Loss: 1-2%/1 week; 5%/ 1 month; 7.5%/3 months Other: mild body fat loss; mild muscle mass loss; mild fluid accumulation; Severe Malnutrition (in acute illness) Energy Intake: < 50% of estimated energy requirement for > 5 days Weight Loss: >1-2%/1 week; >5%/1 month; >7.5%/3 months Other: moderate body fat loss; moderate muscle mass loss; moderate- severe fluid accumulation; measurably reduced senior producer strength Moderate Malnutrition (in chronic illness) Energy Intake: <75% of estimated energy requirement for >1 month Weight Loss: 5%/1 month; 7.5%/3 months; 10%/6 months; 20%/1 year Other: mild body fat loss; mild muscle mass loss; mild fluid accumulation Severe Malnutrition (in chronic illness) Energy Intake: <75% of estimated energy requirement for >1 month Weight Loss: >5%/1 month; >7.5%/3 months; >10%/6 months; >20%/1 year Other: severe body fat loss; severe muscle mass loss; severe fluid accumulation ; measurably reduced senior producer strength (This form is maintained as a part of the permanent medical record) 2014 [email or web address]. All Rights Reserved [email or web address]
== END 2019-07-16 16:24 | disposition home or self-care (01) | DRG 813 ==
LOC: ERS 13:50 → 2NO 16:40 → OBSVTOIN 16:40
PROVIDERS: ADMIT Family Medicine; ATTEND Family Medicine
DX: D69.3 Immune thrombocytopenic purpura (principal); E87.1 Hypo-osmolality and hyponatremia; N17.9 Acute kidney failure, unspecified; E44.0 Moderate protein-calorie malnutrition; Z68.1 Body mass index [BMI] 19.9 or less, adult; E87.2 Acidosis; E87.6 Hypokalemia; N25.89 Other disorders resulting from impaired renal tubular function; E55.9 Vitamin D deficiency, unspecified; E86.0 Dehydration; K21.9 Gastro-esophageal reflux disease without esophagitis; N91.2 Amenorrhea, unspecified; D50.9 Iron deficiency anemia, unspecified; Z79.899 Other long term (current) drug therapy; E21.0 Primary hyperparathyroidism; D52.9 Folate deficiency anemia, unspecified; D51.9 Vitamin B12 deficiency anemia, unspecified
CPT/HCPCS: 36415; 80053; 80069; 81003; 82306; 82340; 82436; 82533; 82570; 82607; 82728; 82746; 83540; 83735; 83970; 84100; 84133; 84156; 84443; 84703; 85007; 85027; 85046; 85652; 86038; 86140; 86225; 93005; 94760; 96365; 96366; 96374; J1100; J3420; J3475; J3480; J3490; J7050; J8540; Q0167; S0028

== ENCOUNTER 2019-07-16 17:05 | Emergency (ER) | payer OTHER ==
[2019-07-16] MEDS ORDERED: Calcium Gluc 4.6 MEQ/10 ML (100 MG/ML) ONE ×2 (17:42→19:33)
[2019-07-16 18:00] LABS: Hemoglobin 10.7 g/dL (12.0-16.0); Mean Corpuscular HGB CONC 34.3 g/dL (32.0-36.0); Mean Corpuscular Hemoglobin 30.1 pg (27.0-31.0); Mean Corpuscular Volume 87.8 fL (78.0-98.0); Mean Platelet Volume 8.9 fL (7.4-10.4); Platelet Count 215 thou/uL (130-400); RBC Distribution Width 14.1 % (11.5-14.5); Red Blood Cell (RBC) Count 3.56 mill/uL (4.20-5.40); White Blood Cell (WBC) Count 12.8 thou/uL (4.8-10.8)
[2019-07-16 18:16] LABS: Band 6 % (5-11); Lymphocytes 11 % (21-51); MDiff Complete? YES; Monocytes 1 % (0-10); Neutrophil 82 % (42-75); Ovalocytes SLIGHT = 2-5 cells (100X) (0-1/hpf); Platelet Morphology Comment Appears Adequate; Polychromasia SLIGHT = 2-3 cells (100X) (0-2/hpf)
[2019-07-16 18:20] LABS: ALT (SGPT) 34 U/L (8-55); AST (SGOT) 34 U/L (5-34); Albumin 3.4 g/dL (3.5-5.0); Alkaline Phosphatase 119 U/L (40-110); Anion Gap 16 mmol/L (10-20); BUN (Urea Nitrogen) 21 mg/dL (7.0-18.7); Bilirubin, Total 0.2 mg/dL (0.2-1.2); CK (CPK) 737 U/L (29-168); Calc. Creatinine Clearance 0 mL/min (70-130); Calcium 7.2 mg/dL (7.8-10.44); Carbon Dioxide 20 mmol/L (22-29); Chloride 103 mmol/L (98-107); Estimated GFR-MDRD 87; Globulin 2.4 g/dL (2.4-3.5); Glucose 148 mg/dL (70-105); Magnesium 1.3 mg/dL (1.6-2.6); Protein, Total 5.8 g/dL (6.0-8.3); Sodium 135 mmol/L (136-145)
[2019-07-16 18:33] LABS: BHCG - Serum Negative (NEGATIVE); Pregs Control Background? CLEAR/WHITE (CLR/WHITE); Pregs Control Bar Appear? YES (CONTROL BAR)
[2019-07-16] MEDS ORDERED: Acetaminophen 500 MG TAB ONE (18:36)
[2019-07-16] MEDS ORDERED: Magnesium 2 GM/50 ML BAG (IN WATER) ONE (19:33)
== END 2019-07-16 21:42 | disposition home or self-care (01) ==
LOC: ERS 17:05
DX: R25.2 Cramp and spasm (principal)
CPT/HCPCS: 82550; 83735; 84703; 85025; 93005; 96365; 96375; 96376; J3475